=== PATIENT | male | born 1960 | race Hispanic/Latino ===

== ENCOUNTER 2018-01-17 09:34 | Day surgery (SDC) | payer OTHER ==
[2018-01-17] MEDS ORDERED: XYLOCAINE MPF 2% ONE (10:00)
[2018-01-17] MEDS ORDERED: WATER FOR IRRIG STERILE ONE (10:01)
--- NOTE | 2018-01-17 10:33 | Anesthesia Day of Surgery ---
Anesthesia Day of Surgery - Day of Surgery Patient Examined: Yes Patient H&P Reviewed: Yes Patient is NPO: Yes Beta Blockers: No
--- NOTE | 2018-01-17 10:35 | Anesthesia Consultation ---
Anesthesia Consult and Med Hx - Airway Anesthetic Teeth Evaluation: Good ROM Head & Neck: Adequate Mental/Hyoid Distance: Adequate Mallampati Class: Class II Intubation Access Assessment: Probably Good - Pulmonary Exam CTA: Yes - Cardiac Exam Cardiac Exam: No Murmur - Pre-Operative Health Status ASA Pre-Surgery Classification: ASA1, ASA3 Proposed Anesthetic Plan: MAC - Pulmonary Hx Smoking: No Hx Asthma: No Hx Respiratory Symptoms: No SOB: No COPD: No Home Oxygen Therapy: No Hx Pneumonia: No Hx Sleep Apnea: No - Cardiovascular System Hx Hypertension: No Hx Coronary Artery Disease: No Hx Heart Attack/AMI: No Hx Angina: No Hx Percutaneous Transluminal Coronary Angioplasty (PTCA): No Hx Cardia Arrhythmia: No Hx Pacemaker: No Hx Internal Defibrillator: No Hx Valvular Heart Disease: No Hx Heart Murmur: No Hx Peripheral Vascular Disease: No - Central Nervous System Hx Neuromuscular Disorder: No Hx Seizures: No CVA: No Hx Back Pain: No Hx Psychiatric Problems: No - Gastrointestinal Hx Ulcer: No Hx Gastroesophageal Reflux Disease: No - Endocrine Hx Renal Disease: No Hx End Stage Renal Disease: No Hx Cirrhosis: No Hx Liver Disease: No Hx Insulin Dependent Diabetes: No Hx Non-Insulin Dependent Diabetes: No Hx Thyroid Disease: No Hx Hypothyroidism: No Hx Hyperthyroidism: No - Hematic Hx Anemia: No Hx Sickle Cell Disease: No - Other Systems Hx Alcohol Use: No Hx Substance Use: No Hx Cancer: No Hx Obesity: No
[2018-01-17] MEDS ORDERED: NACL 0.9% 1000 ML 1,000 ML IV SCH (11:00)
[2018-01-17] MEDS ORDERED: DIPRIVAN 10 MG/ML IV ONE ×2 (11:04→11:41)
--- NOTE | 2018-01-17 11:47 | Operative Report ---
Operative Report Operative Report: Date of procedure: 01/17/2018 Procedure: Colonoscopy with submucosal injection, snare polypectomy with Hemoclip application. Attending physician: Geovanny Mendoza MD Medical Legal Investigator: Geovanny Mendoza MD Indication: Patient is a 57-year-old male who presents for colorectal cancer screening. A colonoscopy serves to evaluate patient so that treatment may be directed based on the findings. Consent: Informed consent was obtained after advising the patient and family regarding nature of this procedure, its indications, potential benefits as well as possible complications including but not limited to bleeding perforation and adverse reaction to medication, infection as well as other cardiopulmonary complications. An informed written and verbal consent was then obtained after due opportunity was provided for questions and answers. Monitoring: Patient was monitored continuously with pulse oximetry and electrocardiographic recordings as well as blood pressure recordings. Vital signs remained stable throughout this procedure with no untoward events. Preoperative assessment: Patient was assessed immediately prior to this procedure for capacity to tolerate monitored anesthesia care and moderate sedation as well as general anesthesia. Patient's ASA classification is 2, Mallampati class is 2, Hyomental distance is 3. Instrument: Adylitican video colonoscope Medications: Propofol given intravenously in divided doses. For details please refer to anesthesia records. Description of procedure: Patient was placed in the left lateral decubitus position after achieving sedation, a digital rectal examination was performed following which the colonoscope was introduced into the anal verge and advanced to the cecum which was identified by the cecal valve, the appendiceal orifice, as well as by the cecal strap and direct transillumination. The colonoscope was subsequently withdrawn with careful inspection of all mucosal surfaces. Patient tolerated this procedure well and was subsequently taken to the recovery room. The following findings were noted. Findings: Patient had a sessile 1.0 cm polyp in the transverse colon, this was elevated with submucosal injection of saline and removed completely by snare electrocautery and retrieved. The defect at the polypectomy site was closed with a Hemoclip. On the retroflex view at the anal verge, patient had large prominent internal hemorrhoids. The rest of the colon to the cecum was normal. Impression: Transverse colon polyp status post submucosal injection, snare polypectomy and Hemoclip application. Prominent large internal hemorrhoids Plan: Follow pathology report High-fiber diet. Repeat colonoscopy in 5 years if polyp is adenomatous. Patient may benefit from hemorrhoidal band ligation if he is symptomatic
--- NOTE | 2018-01-17 11:48 | Discharge Summary ---
Short Stay Discharge Plan Activity: advance as tolerated Weight Bearing Status: Weight Bear as Tolerated Diet: regular
[2018-01-17 12:09] VITALS: BP 110/75
== END 2018-01-17 09:35 | disposition home or self-care (01) ==
LOC: GIO 09:34
PROVIDERS: ATTEND Internal Medicine Gastroenterology
DX: D12.3 Benign neoplasm of transverse colon (principal); K59.09 Other constipation; K64.8 Other hemorrhoids
CPT/HCPCS: 45381; 45385; 88305; J2704; J7030